=== PATIENT | female | born 1955 | race Caucasian/White ===

== ENCOUNTER 2024-05-31 06:12 | Day surgery (SDC) | payer OTHER, SELFPAY ==
[2024-05-31] VITALS (8 sets, daily range): BP systolic 115–136; BP diastolic 65–77; PULSE 71–87; RESP 14–16; TEMP 36.1–36.4; O2SAT 96–97; BMI 24.7
--- OUTSIDE RECORDS SUMMARY | 2024-05-31 06:15 | XMS_ITS | Encounter Summary ---
Author Organization [place] Address [address] [place] [address] Care Team Providers Care Lapidary Apprentice Name Role Phone Iva Amor MD Unavailable [phone] [facility] [place] [facility] [place] Primary Care Provider No Ref-Primary, Physician Primary Care Provider Denise Rice MD Unavailable Denise iRce MD Primary Care P rovider Reason for Visit * Reason Comments Medication Refill Encounter Details Date Type Department Care Team (Late st Contact Info) Description 09/20/2019 [facility] [address] [place] [address] Iva Amor MD [address] [place] [address] Medication Refill Social History Tobacco Use Types Packs/Day Years Used Date Smoking Tobacco: Never Smokeless Tobacco: Never Alcohol Use Standard Drinks/Week Comments No 0 (1 standard drink = 0.6 oz pur e alcohol) occa AUDIT-C Answer Date Recorded Frequency of Alcohol Consumption Never 06/28/2018 Average Number of Drinks Not on file 019 Frequency of Binge Drinking Not on file 06/18 PHQ-2 Answer Date Recorded PHQ-2 Score 0 06/28/2018 Comments No Sex and Gender Information Value Date Recorded Sex Assigned at Not on file 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 Gender Identity Not on file Sexual Orientation Not on file documented as of this encounter Plan of Treatment Upcoming Encounters Date Type Department Care Team (Late st Contact Info) Description 08/08/2024 8:30 AM CDT Office Visit [facility] [address] [place] [phone] Denise Rice MD [address] [place], [place] [id number] 08/08/2024 9:30 AM CDT Appointment [facility] [address], [address] [place] [phone] Denise Rice MD [address] [place], [place] [address] documented as of this encounter Visit Diagnoses Diagnosis Hypothyroidism, acquired Unspecified hypothyroidism documented in this encounter Care Teams Lapidary Apprentice Relationship Specialty Start Date End Date [facility] [address] [place], [place] [address] PCP - General Internal Medicine 07/14/19 06/24/21 No Ref-Primary, Physician PCP - General 06/25/21 07/07/22 Denise Rice MD [address] [place], [place] [id number] PCP - General Internal Medicine 07/08/22 Iva Amor MD [facility] [address] [place] [address] Assigned PCP 06/06/18 07/06/21 Denise Rice MD [address] [place] [address] Assigned PCP 07/07/21 documented as of this encounter
--- OUTSIDE RECORDS SUMMARY | 2024-05-31 06:15 | XMS_ITS | Encounter Summary ---
Author Organization [place] Address [address] [place] [address] Care Team Providers Care Energy Risk Management Analyst Name Role Phone Iva Amor MD Unavailable [phone] [facility] Primary Care Provider No Ref-Primary, Physician Primary Care Provider Denise Rice MD Unavailable Denise Rice MD Primary Care P rovider Encounter Details Date Type Department Care Team (Late st Contact Info) Description 04/23/2020 [facility] [address] [place] [address] Iva Amor MD [address] [place] [address] Social History Tobacco Use Types Packs/Day Years [...] on file 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 Gender Identity Not on file Sexual Orientation Not on file documented as of this encounter Miscellaneous Notes * Telephone Encounter - Bobbi Crooks, RN - 04/23/2020 3:28 PM DOUGH MIXING MACHINE OPERATOR [facility], AV H MIXING MACHINE OPERATOR documented in this encounter Plan of Treatment Upcoming Encounters Date Type Department Care Team (Late st Contact Info) Description 08/08/2024 8:30 AM CDT Office Visit [facility] [address] [place] [phone] Denise Rice MD [address] [place], [place] [phone] 08/08/2024 9:30 AM CDT Appointment [facility] [address] [facility] [place] [phone] Denise Rice MD [address] [place], [place] [address] documented as of this encounter Visit Diagnoses Not on filedocumented in this encounter Care Teams Energy Risk Management Analyst Relationship Specialty Start Date End Date [facility] [address] [place] [place], [place] [address] PCP - General Internal Medicine 07/14/19 06/24/21 No Ref-Primary, Physician PCP - General 06/25/21 07/07/22 Denise Rice MD [address] [place] [address] PCP - General Internal Medicine 07/08/22 Iva Amor MD [address] [place] [address] Assigned PCP 06/06/18 07/06/21 Denise Rice MD [facility] [place] [address] Assigned PCP 07/07/21 documented as of this encounter
--- OUTSIDE RECORDS SUMMARY | 2024-05-31 06:15 | XMS_ITS | Encounter Summary ---
Author Organization [place] Address [address] [place] [address] Care Team Providers Care Post Acute Care Nurse Practitioner Name Role Phone Iva Amor MD Unavailable [phone] [facility] [place] Primary Care Provider No Ref-Primary, Physician Primary Care Provider Denise Rice MD Unavailable Denise Rice MD Primary Care P rovider Encounter Details Date Type Department Care Team (Late st Contact Info) Description 05/29/2021 [facility] Medical Advice Initial Department [facility] Social History Tobacco Use Types Packs/Day Years [...] 06/18 PHQ-2 Answer Date Recorded PHQ-2 Score 1 06/20/2020 Comments No Sex and Gender Information Value Date Recorded Sex Assigned at Not on file 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 Gender Identity Not on file Sexual Orientation Not on file documented as of this encounter Plan of Treatment Upcoming Encounters Date Type Department Care Team (Late st Contact Info) Description 08/08/2024 8:30 AM CDT Office Visit [facility] [address] [place] [phone] Denise Rice MD [address] [place], [place] [phone] 08/08/2024 9:30 AM CDT Appointment [facility] [address], [address] [place] [phone] Denise Rice MD [address] [place], [place] [phone] documented as of this encounter Visit Diagnoses Not on filedocumented in this encounter Care Teams Post Acute Care Nurse Practitioner Relationship Specialty Start Date End Date [facility] [address] [place], [place] [address] PCP - General Internal Medicine 07/14/19 06/24/21 No Ref-Primary, Physician PCP - General 06/25/21 07/07/22 Denise Rice MD [address] [place] [place], [place] [phone] PCP - General Internal Medicine 07/08/22 Iva Amor MD [facility] [address] [place] [address] Assigned PCP 06/06/18 07/06/21 Denise Rice MD [address] [place], [place] [address] Assigned PCP 07/07/21 documented as of this encounter
--- OUTSIDE RECORDS SUMMARY | 2024-05-31 06:15 | XMS_ITS | Encounter Summary ---
Author Organization [place] Address [address] [place] [address] Care Team Providers Care Exhibition Organiser Name Role Phone Iva Amor MD Unavailable [phone] [facility] Primary Care Provider No Ref-Primary, Physician Primary Care Provider Denise Rice MD Unavailable Denise Rice MD Primary Care P rovider Reason for Visit * Reason Comments Medication Refill Encounter Details Date Type Department Care Team (Late st Contact Info) Description 04/23/2020 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 BREN Guillen SCHOOL PHYSICAL EDUCATION TEACHER * Telephone Encounter - Shyanne Herrera RN - 04/24/2020 3:49 PM CST Pending Prescriptions: Disp Refills estradiol (VIVELLE-DOT) 0.025 MG/24HR bi-*24 pat*1 Sig: APPLY 1 PATCH TWICE A WEEK Per Pushfor message, patient is on 0.025mg dosing, not 0.05mg dosing. Medication is being filled for 1 time refill only due to: pt will be due in May 2020 for an appt. Please call patient to schedule an appointment. SCHOOL PHYSICAL EDUCATION TEACHER documented in this encounter Plan of Treatment Upcoming Encounters Date Type Department Care Team (Late st Contact Info) Description 08/08/2024 8:30 AM CDT Office Visit [facility] [address] [place] [phone] Denise Rice MD [address] [place] [address] 08/08/2024 9:[address] [facility] [address], [address] [place] [phone] Denise Rice MD [address] [place] [address] documented as of this encounter Visit Diagnoses Diagnosis Menopause Symptomatic menopausal or female climacteric states documented in this encounter Care Teams Exhibition Organiser Relationship Specialty Start Date End Date [facility] [address] [place], [place] [address] PCP - General Internal Medicine 07/14/19 06/24/21 No Ref-Primary, Physician PCP - General 06/25/21 07/07/22 Denise Rice MD [address] [place] [address] PCP - General Internal Medicine 07/08/22 Iva Amor MD [address] [place] [address] Assigned PCP 06/06/18 07/06/21 Denise Rice MD [address] [place] [address] Assigned PCP 07/07/21 documented as of this encounter
--- OUTSIDE RECORDS SUMMARY | 2024-05-31 06:15 | XMS_ITS | Encounter Summary ---
Author Organization [place] Address [address] [place] [address] Care Team Providers Care Engine Research Engineer Name Role Phone Kyleigh Sinclair MD Primary Care Provi mykel Unavailable Iva Amor MD Unavailable [phone] [facility] [place][Note 2] Primary Care Provider No Ref-Primary, Physician Primary Care Provider Denise Rice MD Unavailable Denise Rice MD Primary Care P rovider Reason for Visit * Reason Onset Date Comments Call To Schedule Appointment 07/12/2018 Lef t message to schedule DEXA Encounter Details Date Type Department Care Team (Late st Contact Info) Description 07/12/[address] [place] [address] Kyleigh Sinclair MD RETIRED Call To Schedule Appointment (Left message to schedule DEXA) Social History Tobacco Use Types Packs/Day Years [...] on file 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 Gender Identity Not on file Sexual Orientation Not on file documented as of this encounter Miscellaneous Notes * Telephone Encounter - Bob Dashah Robert - 07/12/2018 10:51 AM CDT Left message to schedule DEXA documented in this encounter Plan of Treatment Upcoming Encounters Date Type Department Care Team (Late st Contact Info) Description 08/08/2024 8:30 AM CDT Office Visit [facility] [address] [facility] [address] [place] [phone] Denise Rice MD [address] [place] [address] 08/08/2024 9:30 AM CDT Appointment [facility] [address] [facility], [address] [place] [phone] Denise Rice MD [address] [place], [place] [address] documented as of this encounter Visit Diagnoses Not on filedocumented in this encounter Care Teams Engine Research Engineer Relationship Specialty Start Date End Date Kyleigh Sinclair MD PCP - General cook candy 05/13/17 07/13/19 [facility] [place][Note 2] [address] [place], [place] [address] PCP - General Internal Medicine 07/14/19 06/24/21 No Ref-Primary, Physician PCP - General 06/25/21 07/07/22 Denise Rice MD [address] [facility] [place] [address] PCP - General Internal Medicine 07/08/22 Iva Amor MD [address] [place] [address] Assigned PCP 06/06/18 07/06/21 Denise Rice MD [address] [place] [address] Assigned PCP 07/07/21 documented as of this encounter
--- OUTSIDE RECORDS SUMMARY | 2024-05-31 06:15 | XMS_ITS | Encounter Summary ---
Author Organization [place] Address [address] [place] [address] Care Team Providers Care Card Maker Name Role Phone Denise Rice MD Unavailable Denise Rice MD Primary Care P rovider Encounter Details Date Type Department Care Team (Late st Contact Info) Description 01/14/2023 [facility] Medical Advice [address] [place] [address] Denise Rice MD [address] [place] [address] Social History Tobacco Use Types Packs/Day Years Used Date Smoking Tobacco: Never Passive Smoke Exposure: Never Smokeless Tobacco: Never Alcohol Use Standard Drinks/Week Comments No 0 (1 standard drink = 0.6 oz pur e alcohol) occa AUDIT-C Answer Date Recorded Frequency of Alcohol Consumption Never 06/28/2018 Average Number of Drinks Not on file 019 Frequency of Binge Drinking Not on file 06/18 PHQ-2 Answer Date Recorded PHQ-2 Score 0 07/29/2022 Adolescent Education Answer Date Record ed Getting School Help Needed Not on file 01/14 Comments No Sex and Gender Information Value Date Recorded Sex Assigned at Not on file 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 Gender Identity Not on file Sexual Orientation Not on file documented as of this encounter Plan of Treatment Upcoming Encounters Date Type Department Care Team (Late st Contact Info) Description 08/08/2024 8:30 AM CDT Office Visit [facility] [address] [place] [phone] Denise Rice MD [address] [place] [address] 08/08/2024 9:30 AM CDT Appointment [facility] [address], [address] [place] [phone] Denise Rice MD [address] [place] [address] documented as of this encounter Visit Diagnoses Not on filedocumented in this encounter Care Teams Card Maker Relationship Specialty Start Date End Date Denise Rice MD [address] [place] [address] PCP - General Internal Medicine 07/08/22 Denise Rice MD [address] [place] [address] Assigned PCP 07/07/21 documented as of this encounter
--- OUTSIDE RECORDS SUMMARY | 2024-05-31 06:15 | XMS_ITS | Encounter Summary ---
Author Organization [place] Address [address] [place] [address] Care Team Providers Care Automobile Spring Repairer Name Role Phone No Ref-Primary, Physician Primary Care Provider Denise Rice MD Unavailable Denise Rice MD Primary Care P rovider Encounter Details Date Type Department Care Team (Late st Contact Info) Description 04/25/2022 My[facility] Medical Advice [address] [place] [address] Denise Rice MD [address] [place] [address] Social History Tobacco Use Types [...] PHQ-2 Answer Date Recorded PHQ-2 Score 0 06/27/2021 Comments No Sex and Gender Information Value Date Recorded Sex Assigned at Not on file 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 Gender Identity Not on file Sexual Orientation Not on file documented as of this encounter Plan of Treatment Upcoming Encounters Date Type Department Care Team (Late st Contact Info) Description 08/08/2024 8:30 AM CDT Office Visit [facility] [address] [place] [phone] Denise Rice MD [address] [place] [address] 08/08/2024 9:30 AM CDT Appointment [facility] [address], [address] [place] [phone] Denise Rice MD [address] [place], [place] [address] documented as of this encounter Visit Diagnoses Not on filedocumented in this encounter Care Teams Automobile Spring Repairer Relationship Specialty Start Date End Date No Ref-Primary, Physician PCP - General 06/25/21 07/07/22 Denise Rice MD [address] [place] [address] PCP - General Internal Medicine 07/08/22 Denise Rice MD [address] [place] [address] Assigned PCP 07/07/21 documented as of this encounter
--- OUTSIDE RECORDS SUMMARY | 2024-05-31 06:15 | XMS_ITS | Clinical Summary ---
Author Organization [facility] Address [address] [place] [id number] Care Team Providers Care Synchronous Motor Assembler Name Role Phone Denise Rice MD Unavailable Denise Rice MD Primary Care P rovider Allergies Active Allergy Reactions Criticality Noted Date Comments Penicillins Unknown 05/13/2017 Medications fluorouracil (EFUDEX) 5 % external cream APPLY A THIN LAYER TOPICALLY TO FACE 2X/DAY FOR 2 WEEKS 3 Active valACYclovir (VALTREX) 1000 mg tabletIndications :H/O cold sores Take 2 tablets (2,000 mg) by mouth 2 times daily Total 4000 mg per episode 20 tablet 1 4 Active levothyroxine (SYNTHROID/LEVOTH ROID) 50 MCG tabletIndications :Hypothyroidism, unspecified type Take 1 tablet (50 mcg) by mouth daily 90 tablet 4 4 Active alendronate (FOSAMAX) 70 MG tabletIndications :Osteoporosis without current pathological fracture, unspecified osteoporosis type Take 1 tablet (70 mg) by mouth every 7 days 13 tablet 3 4 Active Active Problems Problem Noted Date Diagnosed Date Hip pain, left 09/21/2023 Hypothyroidism, unspecified type 06/27/2021 Immunizations Name Administration Dates Next Due COVID-19 Monovalent 18+ (Moderna) 02/25/2021,08/2020,05/25/2020 Flu, Unspecified 01/27/2023,,01/03/2020,2009 HepB, Unspecified 07/19/2009,06/18/2009,06/15/19 10 Historical Hepb 07/19/2009,06/18/2009,06/15/2009 Influenza (High Dose) Trival ent,PF (Fluzone) 01/23/2021,01/11/2019 Influenza Intranasal Vaccine 02/01/2018 Influenza Vaccine 65+ (Fluzone HD) 01/27/2023, Influenza Vaccine >6 months,quad, PF 01/26/2017 Influenza,INJ,MDCK,PF,Quad >6mo(Flucelvax) 01/25/2018,01/26/2017 Pneumococcal 20 valent Conju gate (Prevnar 20) 07/29/2022 Pneumococcal 23 valent 01/03/2020 RSV Vaccine (Abrysvo) 03/02/2023 TDAP (Adacel,Boostrix) 12/28/2020 TDAP Vaccine (Adacel) 07/29/2010 Zoster recombinant adjuvante d (SHINGRIX) 01/21/2019,09/21/2018 Family History Medical History Relation Comments Cerebrovascular Disease Father Hypertension Father Other Cancer Maternal Grandfather Pancreatic Breast Cancer Maternal Grandmother Colon Cancer No family hx of Relation Status Comments Brother 1 Alive Brother 2 Alive Brother 3 Alive Brother 4 Alive Father Alive Maternal Grandfather Maternal Grandmother Mother Sister 1 Alive Sister 2 Alive Social History Tobacco Use Types Packs/Day Years Used Date Smoking Tobacco: Never Passive Smoke Exposure: Never Smokeless Tobacco: Never Tobacco Cessation:Counseling Given: No Alcohol Use Standard Drinks/Week Comments No 0 (1 standard drink = 0.6 oz pur e alcohol) occa Social Connection and Isolation Panel [NHANES] A nswer Date Recorded Frequency of Communication with Friends and Fami ly Not on file 08/03/2023 How often do you get togethe r with friends or relatives? Three times a week 08/03/2023 Attends Orthodoxy Services Not on file 08/02 Active Member of Clubs or Organizations Not on f ile 08/03/2023 Attends Club or Organization Meetings Not on joao e 08/03/2023 Marital Status Not on file 08/03/2023 AUDIT-C Answer Date Recorded Frequency of Alcohol Consumption Never 06/28/2018 Average Number of Drinks Not on file 019 Frequency of Binge Drinking Not on file 06/18 PHQ-2 Answer Date Recorded PHQ-2 Score 0 08/04/2023 [facility] Occupational Stress Questionnaire Answer Date Recorded Do you feel stress - tense, restless, nervous, or anxious, or unable to sleep at night because your mind is troubled all the time - these days? Not at all 08/03/2023 Exercise Vital Sign Answer Date Recorde d On average, how many days pe r week do you engage in moderate to strenuous exercise (like a brisk walk)? 3 days 08/03/2023 On average, how many minutes do you engage in exercise at this level? 30 min 08/03/2023 Adolescent Education Answer Date Record ed Getting School Help Needed Not on file 01/14 Food Insecurity Answer Date Recorded Within the past 12 months, d id you worry that your food would run out before you got money to buy more? No 08/03/2023 Within the past 12 months, d id the food you bought just not last and you didn t have money to get more? No 08/03/2023 Housing Stability Answer Date Recorded Do you have housing? (Giorgio g is defined as stable permanent housing and does not include staying ouside in a car, in a tent, in an abandoned building, in an overnight half-way, or couch-surfing.) Yes 08/03/2023 Are you worried about losing your housing? No 08/03/2023 Financial Resource Strain Answer Date R ecorded Within the past 12 months, h ave you or your family members you live with been unable to get utilities (heat, electricity) when it was really needed? No 08/03/2023 Transportation Needs Answer Date Record ed Within the past 12 months, h as lack of transportation kept you from medical appointments, getting your medicines, non-medical meetings or appointments, work, or from getting things that you need? No 08/03/2023 Interpersonal Safety Answer Date Record ed Do you feel physically and e motionally safe where you currently live? Yes 08/04/2023 Within the past 12 months, h ave you been hit, slapped, kicked or otherwise physically hurt by someone? No 08/04/2023 Within the past 12 months, h ave you been humiliated or emotionally abused in other ways by your partner or ex-partner? 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 Gender Identity Not on file Sexual Orientation Not on file Last Filed Vital Signs Vital Sign Reading Time Taken Comments Blood Pressure 114/72 08/04/2023 8:04 AM CDT Pulse 81 08/04/2023 8:04 AM CDT Temperature 35.9 C (96.6 F) 08/04/2023 8:04 AM CDT Respiratory Rate 18 08/04/2023 8:04 AM CDT Oxygen Saturation 99% 08/04/2023 8:04 AM CDT Inhaled Oxygen Concentration - - Weight 67.1 kg (147 lb 14.4 oz) 08/04/2023 8:04 AM CDT Height 160 cm (5' 3) 08/04/2023 8:04 AM CDT Body Mass Index 26.2 08/04/2023 8:04 AM CDT Plan of Treatment Upcoming Encounters Date Type Department Care Team (Late st Contact Info) Description 08/08/2024 8:30 AM CDT Office Visit [facility] [address] [place] [phone] Denise Rice MD [address] [place], [place] [phone] 08/08/2024 9:30 AM CDT Appointment [facility] [address], [address] [place] [phone] Denise Rice MD [address] [place] [address] Health Maintenance Due Date Last Done Comments CT COLONOGRAPHY 1955 FIT 1955 FLEX SIG 1955 sDNA (Cologuard) 1955 ANNUAL REVIEW OF HM ORDERS 11/06/2022 11/06/2021 COVID-19 Vaccine ( season) 2023 01/27/2023, 02/03/2022, 08/14/2021, Additional history exists PHQ-2 (once per calendar year) 2024 08/04/2023, 07/29/2022, 06/27/2021, Additional history exists FALL RISK ASSESSMENT 08/03/2024 08/04/2023, 07/29/2022, 06/27/2021, Additional history exists MEDICARE ANNUAL WELLNESS VISIT 08/03/2024 08/04/2023, 07/29/2022, 06/27/2021, Additional history exists TSH W/FREE T4 REFLEX 08/03/2024 08/04/2023, 08/04/2023, 09/24/2022, Additional history exists MAMMO SCREENING 08/03/2025 08/04/2023, 07/19, 06/27/2021, Additional history exists GLUCOSE 08/03/2026 08/04/2023, 06/0 10/2022, 06/20/2020, Additional history exists COLONOSCOPY 05/19/2027 05/19/2017, 05/19/2017 COLORECTAL CANCER SCREENING 05/19/2027 ADVANCE CARE PLANNING 08/03/2028 08/04/2023 , 07/29/2022, 06/20/2020, Additional history exists LIPID 08/03/2028 08/04/2023, 06/0 10/2022, 06/27/2021, Additional history exists DTAP/TDAP/TD IMMUNIZATION (3 - Td or Tdap) 12/28/2030 12/28/2020, 07/29/2010, 07/29/2010 DEXA 09/30/2038 10/01/2023, 07/20, 08/09/2018 ZOSTER IMMUNIZATION Completed 01/21/2019, 9 HEPATITIS C SCREENING Completed 06/17/2019 Pneumococcal Vaccine: 50+ Years Completed 07/29/2022, 01/03/2020 RSV VACCINE Completed 03/02/2023 INFLUENZA VACCINE Completed 02/05/2024, , 01/27/2023, Additional history exists HPV IMMUNIZATION Aged Out No longer e ligible based on patient's age to complete this topic MENINGITIS IMMUNIZATION Aged Out No l onger eligible based on patient's age to complete this topic RSV MONOCLONAL ANTIBODY Aged Out No l onger eligible based on patient's age to complete this topic Procedures Procedure Name Priority Date/Time Associated Diagnosis Comments DX AXIAL HIPS/SPINE Routine 10/01/2023 9 :28 AM CDT Osteoporosis without current pathological fracture, unspecified osteoporosis type MA SCREENING BILATERAL W/ KIET Routine 08/04/2023 9:34 AM CDT Visit for screening mammogram COMPREHENSIVE METABOLIC PANEL Routine 08/04/2023 9:30 AM CDT Routine general medical examination at a health care facility Left buttock pain H/O cold sores Hypothyroidism, unspecified type Vitamin D deficiency TSH WITH FREE T4 REFLEX Routine 08/04/2023 9:30 AM CDT Routine general medical examination at a health care facility Left buttock pain H/O cold sores Hypothyroidism, unspecified type Vitamin D deficiency LIPID REFLEX TO DIRECT LDL PANEL Routine 08/04/2023 9:30 AM CDT Routine general medical examination at a health care facility Left buttock pain H/O cold sores Hypothyroidism, unspecified type Vitamin D deficiency HEPATITIS C ANTIBODY Routine 06/17/2019 9:12 AM ASSISTANT FRONT END MANAGER Routine general medical examination at a health care facility COLONOSCOPY Routine 05/19/2017 10:27 AM ASSISTANT FRONT END MANAGER from Last 3 Months or Most Recently Relevant to Health Maintenance Results * DX AXIAL HIPS/SPINE (10/01/2023 9:28 AM CDT) Anatomical Region Laterality Modality Dexa Bone Mineral Den sity 10/01/2023 9:28 AM CDT Impressions 10/01/2023 2:11 PM CDT IMPRESSION: OSTEOPOROSIS. T score meets the WHO criteria for osteoporosis at one or more measured sites. The risk of osteoporotic fracture increases approximately two-fold for each standard deviation decrease in T-score. Narrative 10/01/2023 2:11 PM CDT EXAM: DX AXIAL HIPS/SPINE LOCATION: [facility] DATE: 10/01/2023 INDICATION: BMD screening, follow-up. DEMOGRAPHICS: Age- 67 years. Gender- Female. Menopausal status- Postmenopausal. COMPARISON: 08/07/2021 TECHNIQUE: Dual-energy x-ray absorptiometry (DXA) performed with routine technique. FINDINGS: DXA RESULTS -Lumbar Spine: L1-L2: BMD: 0.751 g/cm2. T-score: -3.5. Z-score: -1.8. L3 and L4 omitted from lumbar spine due to greater than 1.0 T-score difference from adjacent vertebrae. This is likely due to degenerative changes, which may artifactually increase BMD. -RIGHT Hip Total: BMD: 0.766 g/cm2. T-score: -1.9. Z-score: -0.5. -RIGHT Hip Femoral neck: BMD: 0.803 g/cm2. T-score: -1.7. Z-score: 0.0. -LEFT Hip Total: BMD: 0.817 g/cm2. T-score: -1.5. Z-score: -0.1. -LEFT Hip Femoral neck: BMD: 0.793 g/cm2. T-score: -1.8. Z-score: -0.1. WHO T-SCORE CRITERIA -Normal: T score at or above -1 SD -Osteopenia: T score between -1 and -2.5 SD -Osteoporosis: T score at or below -2.5 SD The World Health Organization (WHO) criteria is applicable to perimenopausal females, postmenopausal females, and men aged 50 years or older. INTERVAL CHANGE -There has been a 10.9% decrease in lumbar spine BMD. -There has been a 1.2% decrease in bilateral hip BMD. FRACTURE RISK -The FRAX risk calculator is not applicable due to osteoporosis. RECOMMENDATIONS The patient's BMD is consistent with osteoporosis, and he/she is at increased fracture risk. If not currently being treated for low BMD, this would merit treatment according to the Bone Health and Osteoporosis Foundation. Procedure Note Cele Anders PA-C - 10/01/2023 EXAM: DX AXIAL HIPS/SPINE LOCATION: [facility] DATE: 10/01/2023 INDICATION: BMD screening, follow-up. DEMOGRAPHICS: Age- 67 years. Gender- Female. Menopausal status-Postmenopausal. COMPARISON: 08/07/2021 TECHNIQUE: Dual-energy x-ray absorptiometry (DXA) performed with routinetechnique. FINDINGS: DXA RESULTS -Lumbar Spine: L1-L2: BMD: 0.751 g/cm2. T-score: -3.5. Z-score: -1.8. L3and L4 omitted from lumbar spine due to greater than 1.0 T-scoredifference from adjacent vertebrae. This is likely due to degenerativechanges, which may artifactually increase BMD. -RIGHT Hip Total: BMD: 0.766 g/cm2. T-score: -1.9. Z-score: -0.5. -RIGHT Hip Femoral neck: BMD: 0.803 g/cm2. T-score: -1.7. Z-score: 0.0. -LEFT Hip Total: BMD: 0.817 g/cm2. T-score: -1.5. Z-score: -0.1. -LEFT Hip Femoral neck: BMD: 0.793 g/cm2. T-score: -1.8. Z-score: -0.1. WHO T-SCORE CRITERIA -Normal: T score at or above -1 SD -Osteopenia: T score between -1 and -2.5 SD -Osteoporosis: T score at or below -2.5 SD The World Health Organization (WHO) criteria is applicable toperimenopausal females, postmenopausal females, and men aged 50 years orolder. INTERVAL CHANGE -There has been a 10.9% decrease in lumbar spine BMD. -There has been a 1.2% decrease in bilateral hip BMD. FRACTURE RISK -The FRAX risk calculator is not applicable due to osteoporosis. RECOMMENDATIONS The patient's BMD is consistent with osteoporosis, and he/she is atincreased fracture risk. If not currently being treated for low BMD, thiswould merit treatment according to the Bone Health and OsteoporosisFoundation. IMPRESSION: OSTEOPOROSIS. T score meets the WHO criteria for osteoporosisat one or more measured sites. The risk of osteoporotic fracture increasesapproximately two-fold for each standard deviation decrease in T-score. Denise Rice MD G DEXA ORDERA BLES Final Result * MA Screen Bilateral w/Kiet (08/04/2023 9:34 AM CDT) Anatomical Region Laterality Modality Breast Bilateral Mammography Impressions 08/04/2023 12:48 PM CDT IMPRESSION: ACR BI-RADS Category 1: Negative BREAST CANCER SCREENING RECOMMENDATION: Routine yearly mammography beginning at age 40 or as discussed with your provider. The results and recommendations of this examination will be communicated to the patient. Swapnil Mills MD Narrative 08/04/2023 12:48 PM CDT BILATERAL FULL FIELD DIGITAL SCREENING MAMMOGRAM WITH TOMOSYNTHESIS Performed on: 08/04/23 Compared to: 07/29/2022 and 06/20/2020 Technique: This study was evaluated with the assistance of Computer-Aided Detection. Breast Tomosynthesis was used in interpretation. Findings: The breasts have scattered areas of fibroglandular density. There is no radiographic evidence of malignancy. Denise Rice MD IMG MAMMOGRAPHY ORDERABLES Final Result * (ABNORMAL) TSH with free T4 reflex (08/04/2023 9:30 AM CDT) TSH 4.41(H) 0.30 - 4.20 uIU/mL 08/05/2023 4:25 PM CDT [facility] Blood BLOOD SPECIMEN / Unknown Venipuncture / Unknown 08/04/2023 9:30 AM CDT 08/04/2023 9:30 AM CDT Denise Rice MD LAB - BLOOD ORD ERABLES Final Result [facility] [address], [address] [place] [phone], [facility] * (ABNORMAL) Lipid panel reflex to direct LDL Fasting (08/04/2023 9:30 AM CDT) Cholesterol 225(H) <200 mg/dL 08/05/2023 4:25 PM CDT [facility] Triglycerides 148 <150 mg/dL 08/05/2023 4:25 PM CDT [facility] Direct Measure HDL 83 >=50 mg/dL 08/05/2023 4:25 PM CDT [facility] LDL Cholesterol Calculated 112(H) <=100 mg/dL 08/05/2023 4:25 PM CDT [facility] Non HDL Cholesterol 142(H) <130 mg/dL 08/05/2023 4:25 PM CDT [facility] Patient Fasting > 8hrs? Yes 08/05/2023 4:25 PM CDT [facility] Blood BLOOD SPECIMEN / Unknown Venipuncture / Unknown 08/04/2023 9:30 AM CDT 08/04/2023 9:30 AM CDT Narrative [facility] - 08/05/2023 4:25 PM CDT Cholesterol Desirable: <200 mg/dL Triglycerides Normal: Less than 150 mg/dL Borderline High: 150-199 mg/dL High: 200-499 mg/dL Very High: Greater than or equal to 500 mg/dL Direct Measure HDL Female: Greater than or equal to 50 mg/dL Male: Greater than or equal to 40 mg/dL LDL Cholesterol Desirable: <100mg/dL Above Desirable: 100-129 mg/dL Borderline High: 130-159 mg/dL High: 160-189 mg/dL Very High: >= 190 mg/dL Non HDL Cholesterol Desirable: 130 mg/dL Above Desirable: 130-159 mg/dL Borderline High: 160-189 mg/dL High: 190-219 mg/dL Very High: Greater than or equal to 220 mg/dL us Denise Rice MD LAB - BLOOD ORD ERABLES Final Result [facility] [address], [address] [place] [address], [facility] * Comprehensive metabolic panel (08/04/2023 9:30 AM CDT) [facility] Sodium 140 135 - 145 mmol/L 08/05/2023 4:25 PM CDT [facility] Comment:Reference intervals for this test were updated on 01/13/2023 to more accurately reflect our healthy population. There may be differences in the flagging of prior results with similar values performed with this method. Interpretation of those prior results can be made in the context of the updated reference intervals. Potassium 4.4 3.4 - 5.3 mmol/L 08/05/2023 4:25 PM CDT [facility] Carbon Dioxide (CO2) 24 22 - 29 mmol/L 08/05/2023 4:25 PM CDT [facility] Anion Gap 13 7 - 15 mmol/L 08/05/2023 4:25 PM CDT [facility] Urea Nitrogen 18.2 8.0 - 23.0 mg/dL 08/05/2023 4:25 PM CDT [facility] Creatinine 0.83 0.51 - 0.95 mg/dL 08/05/2023 4:25 PM CDT [facility] GFR Estimate 76 >60 mL/min/1. 73m2 08/05/2023 4:25 PM CDT [facility] Calcium 9.5 8.8 - 10.2 mg/dL 08/05/2023 4:25 PM CDT [facility] Chloride 103 98 - 107 mmol/L 08/05/2023 4:25 PM CDT [facility] Glucose 89 70 - 99 mg/dL 08/05/2023 4:25 PM CDT [facility] Alkaline Phosphatase 102 40 - 150 U/L 08/05/2023 4:25 PM CDT [facility] Comment:Reference intervals for this test were updated on 03/03/2023 to more accurately reflect our healthy population. There may be differences in the flagging of prior results with similar values performed with this method. Interpretation of those prior results can be made in the context of the updated reference intervals. AST 25 0 - 45 U/L 08/05/2023 4:25 PM CDT [facility] Comment:Reference intervals for this test were updated on 09/29/2022 to more accurately reflect our healthy population. There may be differences in the flagging of prior results with similar values performed with this method. Interpretation of those prior results can be made in the context of the updated reference intervals. ALT 23 0 - 50 U/L 08/05/2023 4:25 PM CDT [facility] Comment:Reference intervals for this test were updated on 09/29/2022 to more accurately reflect our healthy population. There may be differences in the flagging of prior results with similar values performed with this method. Interpretation of those prior results can be made in the context of the updated reference intervals. Protein Total 7.5 6.4 - 8.3 g/dL 08/05/2023 4:25 PM CDT [facility] Albumin 4.6 3.5 - 5.2 g/dL 08/05/2023 4:25 PM CDT [facility] Bilirubin Total 0.9 <=1.2 mg/dL 08/05/2023 4:25 PM CDT [facility] Blood BLOOD SPECIMEN / Unknown Venipuncture / Unknown 08/04/2023 9:30 AM CDT 08/04/2023 9:30 AM CDT us Denise Rice MD LAB - BLOOD ORD ERABLES Final Result [facility] [address] * Hepatitis C antibody (06/17/2019 9:12 AM ASSISTANT FRONT END MANAGER) Hepatitis C Antibody Nonreactive NR^Nonre active 06/20/2019 10:46 AM ASSISTANT FRONT END MANAGER [facility] Comment: Assay performance characteristics have not been established for newborns, infants, and children Blood specimen (specimen) 06/17/2019 9:12 AM ASSISTANT FRONT END MANAGER 06/17/2019 9:13 AM ASSISTANT FRONT END MANAGER us Iva Amor MD LAB - BLOOD ORDERABLES Fin al Result [address] [address] * COLONOSCOPY (05/19/2017 10:27 AM ASSISTANT FRONT END MANAGER) COLONOSCOPY [facility] Patient Name: Kimberley Atkinson Procedure Date: 05/19/2017 10:27 AM Date of : 1955 Admit Type: Outpatient Age: 61 Gender: Female Attending MD: Magdalena Padilla MD Total Sedation Time: 44 minutes of continuous bedside 1:1. Instrument Name: 133 Procedure: Colonoscopy Indications: Screening for colorectal malignant neoplasm Providers: Magdalena Padilla MD (Doctor) Referring MD: Kyleigh Sinclair MD (Referring MD) Medicines: Midazolam 4 mg IV, Fentanyl 100 micrograms IV Complications: No immediate complications. Procedure: Pre-Anesthesia Assessment: - Prior to the procedure, a History and Physical was performed, and patient medications and allergies were reviewed. The patient is competent. The risks and benefits of the procedure and the sedation options and risks were discussed with the patient. All questions were answered and informed consent was obtained. Patient identification and proposed procedure were verified by the physician and the nurse in the endoscopy suite. Mental Status Examination: alert and oriented. Airway Examination: normal oropharyngeal airway and neck mobility. Respiratory Examination: clear to auscultation. CV Examination: normal. Prophylactic Antibiotics: The patient does not require prophylactic antibiotics. Prior Anticoagulants: The patient has taken no previous anticoagulant or antiplatelet agents. ASA Grade Assessment: I - A normal, healthy patient. After reviewing the risks and benefits, the patient was deemed in satisfactory condition to undergo the procedure. The anesthesia plan was to use moderate sedation / analgesia (conscious sedation). Immediately prior to administration of medications, the patient was re-assessed for adequacy to receive sedatives. The heart rate, respiratory rate, oxygen saturations, blood pressure, adequacy of pulmonary ventilation, and response to care were monitored throughout the procedure. The physical status of the patient was re-assessed after the procedure. After obtaining informed consent, the colonoscope was passed under direct vision. Throughout the procedure, the patient's blood pressure, pulse, and oxygen saturations were monitored continuously. The Olympus Peds Colonoscope Model #[id number]-H190L, [place]#[id number], SN#[id number] was introduced through the anus and advanced to 6 cm into the ileum. The colonoscopy was somewhat difficult due to a tortuous colon. Successful completion of the procedure was aided by increasing the dose of sedation medication, changing the patient to a supine position and using manual pressure. The patient tolerated the procedure well. The quality of the bowel preparation was excellent. Findings: The perianal and digital rectal examinations were normal. Pertinent negatives include normal sphincter tone and no palpable rectal lesions. The terminal ileum appeared normal. The entire examined colon appeared normal on direct and retroflexion views. Impression: - The examined portion of the ileum was normal. - The entire examined colon is normal on direct and retroflexion views. - No specimens collected. Recommendation: - Repeat colonoscopy in 10 years for screening purposes. Procedure Code(s): --- Professional --- 39289, Colonoscopy, flexible; diagnostic, including collection of specimen(s) by brushing or washing, when performed (separate procedure) Diagnosis Code(s): --- Professional --- Z12.11, Encounter for screening for malignant neoplasm of colon CPT copyright 2016 [employer]. All rights reserved. The codes documented in this report are preliminary and upon clerical manager review may be revised to meet current compliance requirements. Magdalena Padilla MD 05/19/2017 11:22:29 AM I was physically present for the entire viewing portion of the exam. Magdalena Padilla MD Number of Addenda: 0 Note Initiated On: 05/19/2017 10:27 AM Procedure Date: 05/19/2017 10:27:01 AM Scope Withdrawal Time: 0 hours 11 minutes 14 seconds Total Procedure Duration: 0 hours 40 minutes 22 seconds Estimated Blood Loss: Scope In: 10:39:11 AM Scope Out: 11:19:33 AM RADIOLOGY RESULTS 05/19/2017 10:2 7 AM ASSISTANT FRONT END MANAGER us Kyleigh Sinclair MD PROCEDURES Fin al Result RADIOLOGY RESULTS from Last 3 Months or Most Recently Relevant to Health Maintenance Insurance [facility] CHOICE [facility] CHOICE Care Teams Synchronous Motor Assembler Relationship Specialty Start Date End Date Denise Rice MD [address] [place] [address] PCP - General Internal Medicine 07/08/22 Denise Rice MD [address] [place] [address] Assigned PCP 07/07/21
--- OUTSIDE RECORDS SUMMARY | 2024-05-31 06:15 | XMS_ITS | Encounter Summary ---
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 [address], [address] [place] [phone] Denise Rice MD [address] [place] [address] documented as of this encounter Visit Diagnoses Not on filedocumented in this encounter Care Teams Automatic Grinder Operator Relationship Specialty Start Date End Date Denise Rice MD [address] [place] [address] PCP - General Internal Medicine 07/08/22 Denise Rice MD [address] [place] [address] Assigned PCP 07/07/21 documented as of this encounter
[2024-05-31] MEDS: BUPIVACAINE 0.5 %/EPI 1:200K INJECTION (07:00)
[2024-05-31] MEDS: LIDOCAINE 1%-EPI 1:100,000 20 ML INFILTRATI (07:00)
--- NOTE | 2024-05-31 07:44 | PM.ORPRC ---
Procedure Note Date of procedure: 05/31/24 Procedure: Preop diagnosis: Right thumb stenosing tenosynovitis Postop diagnosis: Right thumb stenosing tenosynovitis Procedure: Right thumb A1 sadaf release Anesthesia: Local Surgeon: Jose Pearl MD junior administrative assistant: NITISH Lee EBL: 1 mL Complications: None Specimens: None Drains: None Preoperative antibiotics: None Indications: The patient has a history of right thumb painful catching and locking. Despite appropriate non operative management including flexor tendon sheath corticosteroid injections they continue to have symptoms. Operative intervention was recommended. The risks, benefits alternatives and expected outcomes were discussed in detail. These included but were not limited to: Infection, bleeding, injury to blood vessel or nerve, venous thromboembolism. All questions were answered to their satisfaction. The patient was placed supine on the operating room table. Local anesthesia was established with 0.5% Marcaine with epinephrine and 2% lidocaine with epinephrine. The hand was prepped and draped in usual sterile fashion. A transverse incision was made in the MP flexion crease of the thumb. Subcutaneous dissection was taken through the palmar fascia to the flexor tendons with the tenotomy scissors. The A1 sadaf was released with the 15 blade and the tenotomy scissors. The edges of the A1 sadaf were sharply resected. Active flexion and extension of the thumb shows no catching or locking, no bowstringing of the flexor tendons. The wound was closed with interrupted nylon sutures. A dry dressing was applied the tourniquet was released. Sponge and needle counts were correct x 2. The patient tolerated the procedure well, there were no apparent complications. They were sent to same day surgery in satisfactory condition. Plan: Use of the hand as tolerates. Discontinue the intraoperative dressing on postoperative day 3 and may get the wound wet as tolerates. Follow up in the office in 2 weeks for a wound check and suture removal.
== END 2024-05-31 08:07 | disposition home or self-care (01) ==
LOC: OR 06:13
PROVIDERS: Visit Provider Orthopaedic Surgery
PROC: (CPT 26055; principal; 2024-05-31 07:30)
DX: M65.311 Trigger thumb, right thumb (principal); M65.841 Other synovitis and tenosynovitis, right hand
CPT/HCPCS: 26055; J3490